=== PATIENT | female | born 1965 ===

== ENCOUNTER 2020-02-25 20:03 | Emergency (ER) | payer OTHER ==
[~2020-02-25] VITALS: Ht 154.9 cm; Wt 67.1 kg
[~2020-02-25 20:03] MED LIST: HYDACE5 PO; NAPR500 PO
== END 2020-02-25 21:59 | disposition home or self-care (01) ==
LOC: ER 20:03
DX: S76.012A Strain of muscle, fascia and tendon of left hip, initial encounter (principal); S00.33XA Contusion of nose, initial encounter; Z87.891 Personal history of nicotine dependence; V29.49XA Motorcycle driver injured in collision with other motor vehicles in traffic accident, initial encounter
CPT/HCPCS: 73502; 99284-25

== ENCOUNTER 2020-04-12 13:08 | Emergency (ER) | payer OTHER ==
[~2020-04-12] VITALS: Ht 154.9 cm; Wt 61.2 kg
[2020-04-12 16:50] LABS: Calcium, Ionized (POC) 1.15 mmol/L (1.10-1.46); Chloride (POC) 102 mmol/L (98-108); Creatinine (POC) 0.8 mg/dL (0.6-1.0); Glucose (ISTAT POC) 89 mg/dL (70-99); Hemoglobin (POC) 11.9 g/dL (12.0-16.0); Potassium (POC) 3.7 mmol/L (3.5-5.5); Sodium (POC) 140 mmol/L (135-148); Total CO2 (POC) 27 mmol/L (21-32)
[2020-04-12] MEDS ORDERED: MICROZIDE12.5 MG PO (16:52)
== END 2020-04-12 17:04 | disposition home or self-care (01) ==
LOC: ER 13:08
PROVIDERS: Emergency Medicine
DX: I10 Essential (primary) hypertension (principal); Z87.891 Personal history of nicotine dependence
CPT/HCPCS: 36415; 80047; 84484; 85014; 93005; 93010; 99283-25; A9270-GY